=== PATIENT | male | born 2000 | race Hispanic/Latino ===

== ENCOUNTER 2024-03-19 23:29 | Emergency (ER) | payer SELFPAY ==
[~2024-03-19] VITALS: Ht 175.3 cm; Wt 113.0 kg
[~2024-03-19 23:29] MED LIST: ADVIL200 MG OR; AMOXICILLIN500 MG OR
[2024-03-19 23:52] VITALS: BP 126/78
[2024-03-20] VITALS: BP 120/78
[2024-03-20] MEDS ORDERED: DEXAMETHASONE 2 MG/TAB TAB PO ONE (00:10)
[2024-03-20] MEDS ORDERED: BENZONATATE 200 MG/CAP PO PRN (00:10)
[2024-03-20 00:16] VITALS: BP 115/77
[2024-03-20 00:30] VITALS: BP 126/78
[2024-03-20 00:46] VITALS: BP 110/84
[2024-03-20 01:01] VITALS: BP 120/70
[2024-03-20 01:13] VITALS: BP 120/70
== END 2024-03-20 02:40 | disposition home or self-care (01) | DRG 195 ==
LOC: ED 23:29
DX: J10.1 Influenza due to other identified influenza virus with other respiratory manifestations (principal)